=== PATIENT | male | born 1970 | race Caucasian/White ===

== ENCOUNTER 2018-05-27 10:36 | Emergency (ER) | payer OTHER, MEDICAID ==
[2018-05-27] MEDS ORDERED: Sulfamethoxazole/TMP 800/160mg Tab PO ONE (11:13)
--- NOTE | 2018-05-27 11:20 | ED Physician Chart ---
ED Chief Complaint/HPI - Patient Information Date Seen:: 05/27/18 Time Seen:: 11:00 Chief Complaint:: ulcer left lower leg History of Present Illness:: Patient struck his distal left mejia on a ladder 3 weeks ago and the abrasion is not healing. Patient's had chills and subjective fever. Several years ago patient had cellulitis of the same area of the left lower leg. Allergies:: Allergies Allergy/AdvReac Type Severity Reaction Status Date / Time No Known Allergies Allergy Verified 05/27/18 11:14 Historian:: Patient Review:: Nurse's Note Reviewed ED Review of Systems - Review of Systems General/Constitutional: Fever, Chills Skin: Skin lesions Head: No headache Eyes: No loss of vision ENT: No earache Neck: No neck pain Cardio Vascular: No chest pain, No palpitations Pulmonary: No SOB GI: No nausea, No vomiting, No diarrhea G/U: No dysuria, No frequency, No hematuria Musculoskeletal: No bone or joint pain Endocrine: No polyuria Psychiatric: No prior psych history Hematopoietic: No bruising Allergic/Immuno: No urticaria Neurological: No syncope ED Past Medical History - Past Medical History Past Medical History: HTN, DM, Other (borderline diabetes) Family History: Other (patient is adopted) Social History: Smoker, Alcohol, Other (smokes 5 cigarettes a day and drinks 1 pint of vodka per day) Surgical History: other (rotator cuff surgery right shoulder; meniscus surgery left knee) Psychiatricy History: None Medication: Reviewed ED Physical Exam - Physical Examination General/Constitutional: Well-developed, well-nourished, Alert Head: Atraumatic Eyes: Lids, conjuctiva normal, PERRL Other Skin comments:: Distal anterior left lower le 1/2 half by 3-1/2 cm weepy superficial red ulcer with about 15 cm of surrounding pale erythema ENMT: External ears, nose nl, Nasal exam nl, Lips, teeth, gums nl Neck: No nuchal rigidity Respiratory: Nl effort/Exclusion, Clear to Auscultation Cardio Vascular: RRR, No murmur, gallop, rubs GI: No tenderness/rebounding/guarding, No organomegaly : No CVA tenderness Other Extremities comments:: Left foot warm; strong dorsalis pedis pulse left foot Neuro/Psych: No focal deficits ED Labs/Radiology/EKG Results - Lab Results Results: Laboratory Tests 05/27/18 11:06 POC Glucose 144 H ED Assessment - Assessment General Assessment: Patient is okay to discharge. Patient instructed to keep his left leg elevated as much as possible. ED Septic Shock - . Is Septic Shock (SBP<90, OR Lactate>4 mmol\L) present?: No ED Reassessment (Disposition) - Reassessment Reassessment Condition:: Unchanged - Diagnosis Diagnosis:: Abscesses cellulitis left lower leg - Aftercare/Follow up Instructions Aftercare/Follow-Up Instructions:: Refer to Discharge Instructions Medication Prescribed:: Keflex 500 mg 4 times a day for 10 days; Bactrim DS No. 20 one twice a day for 10 days; ibuprofen 400 mg #30 to take 1 3 times a day - Patient Disposition Discharge/Transfer:: Home Condition at Disposition:: Stable, Unchanged
[2018-05-27] MEDS ORDERED: Sulfamethoxazole/TMP 800/160mg Tab ONE (11:34)
== END 2018-05-27 12:11 | disposition home or self-care (01) ==
LOC: ER 10:36
DX: L02.416 Cutaneous abscess of left lower limb (principal); L03.116 Cellulitis of left lower limb; L97.929 Non-pressure chronic ulcer of unspecified part of left lower leg with unspecified severity; I10 Essential (primary) hypertension; E11.9 Type 2 diabetes mellitus without complications; F17.210 Nicotine dependence, cigarettes, uncomplicated; Z59.0 Homelessness
CPT/HCPCS: 82948-90; Z7502; Z7610

== ENCOUNTER 2018-12-27 19:21 | Emergency (ER) | payer BC, MEDICAID ==
--- NOTE | 2018-12-27 19:50 | ED Physician Chart ---
ED Chief Complaint/HPI - Patient Information Date Seen:: 12/27/18 Time Seen:: 19:30 Chief Complaint:: Left lower leg wound. History of Present Illness:: Pt walked in this ER because of left lower leg wound for about 6 weeks. No fever. No N/V/D. No known h/o injury. Pt states that he has had similar wound in the same location intermittently over past 3 to 4 years. Allergies:: Allergies Allergy/AdvReac Type Severity Reaction Status Date / Time No Known Allergies Allergy Verified 05/27/18 11:14 Vitals:: Vital Signs - 8 hr 12/27/18 19:29 Temp 97.6 F HR 112 RR 18 BP 156/90 O2 Sat % 97 Historian:: Patient Family MD/PCP:: Dr. Cat LMP:: N/A Review:: Nurse's Note Reviewed ED Review of Systems - Review of Systems General/Constitutional: No fever, No chills, No weight loss, No weakness, No loss of appetite Skin: Skin lesions ( see HPI.), No rash Head: No headache, No light-headedness Eyes: No loss of vision, No pain ENT: No earache, No nasal drainage, No sore throat Neck: No neck pain, No swelling, No stiffness Cardio Vascular: No chest pain Pulmonary: No SOB, No cough, No wheezing GI: No nausea, No vomiting, No pain G/U: No dysuria, No frequency, No hematuria Musculoskeletal: No bone or joint pain Endocrine: No polyuria, No polydipsia Psychiatric: Prior psych history, No depression, No suicidal ideation, No homicidal ideation, No auditory hallucination, No visual hallucination Hematopoietic: No bruising, No lymphadenopathy Allergic/Immuno: No urticaria, No angioedema Neurological: No syncope, No focal symptoms, No weakness, No paresthesia, No headache, No dizziness, No confusion ED Past Medical History - Past Medical History Past Medical History: HTN Family History: Other (pt is adopted.) Social History: Smoker (Pt has been informed about health risks associated with tobacco use and has been advised to stop. Pt has been encouraged to enroll in a smoking cessation program. Pt acknowledges understanding.), Alcohol (occasional use.), Illicit Drug Use (rare marijuana use.), , Lives Alone Surgical History: other (R shoulder surgery about 14 y/a. L knee surgery about 15 y/a.) Psychiatricy History: Bipolar Medication: None Family Medical History - Family Member Mother History Unknown: Yes ED Physical Exam - Physical Examination General/Constitutional: Awake, Well-developed, well-nourished (male), Alert, No distress, Non-toxic appearing, Ambulatory Other Gen/Cons comments:: Breathes comfortably, speaks clearly, and interacts appropriately. Head: Atraumatic Eyes: Lids, conjuctiva normal, PERRL, EOMI Skin: Well hydrated, No lymphadenopathy Other Skin comments:: L lower leg: There is an approx. 9 x 6 cm wound at mid distal anterior aspect of left lower leg with trace yellow exudate and peripheral erythema. No red streaking. ENMT: External ears, nose nl, Nasal exam nl, Oropharynx nl Neck: Nontender, Full ROM w/o pain, No nuchal rigidity, No mass Respiratory: Nl effort/Exclusion, Clear to Auscultation, No Wheeze/Rhonchi/Rales Cardio Vascular: RRR, No murmur, gallop, rubs GI: No tenderness/rebounding/guarding, No organomegaly, Normal BS's, Nondistended Neuro/Psych: Alert/oriented (oriented x 3), Mood normal, Normal gait, No focal deficits ED Labs/Radiology/EKG Results - Lab Results Results: Laboratory Results - last 24 hr 12/27/18 12/27/18 20:10 20:10 WBC 7.5 RBC 4.27 L Hgb 13.5 Hct 39.3 L MCV 92.0 MCH 31.6 H MCHC Differential 34.4 RDW 12.8 Plt Count 240 MPV 7.3 Neutrophils % 73.9 Lymphocytes % 14.2 L Monocytes % 8.2 Eosinophils % 3.7 Basophils % 0.0 PT 9.7 INR 0.93 Laboratory Last Values WBC 7.5 Th/cmm (4.8-10.8) 12/27/18 20:10 RBC 4.27 Mil/cmm (4.30-5.70) L 12/27/18 20:10 Hgb 13.5 gm/dL (12-16) 12/27/18 20:10 Hct 39.3 % (41.0-60) L 12/27/18 20:10 MCV 92.0 fl (80-99) 12/27/18 20:10 MCH 31.6 pg (26.0-30.0) H 12/27/18 20:10 MCHC Differential 34.4 pg (28.0-36.0) 12/27/18 20:10 RDW 12.8 % (11.5-20.0) 12/27/18 20:10 Plt Count 240 Th/cmm (150-400) 12/27/18 20:10 MPV 7.3 fl 12/27/18 20:10 Neutrophils % 73.9 % (40.0-80.0) 12/27/18 20:10 Lymphocytes % 14.2 % (20.0-50.0) L 12/27/18 20:10 Monocytes % 8.2 % (2.0-10.0) 12/27/18 20:10 Eosinophils % 3.7 % (0.0-5.0) 12/27/18 20:10 Basophils % 0.0 % (0.0-2.0) 12/27/18 20:10 PT 9.7 SECONDS (9.5-11.5) 12/27/18 20:10 INR 0.93 (0.5-1.4) 12/27/18 20:10 PTT (Actin FS) 22.3 SECONDS (26.0-38.0) L 12/27/18 20:10 Sodium 136 mEq/L (136-145) 12/27/18 20:10 Potassium 3.7 mEq/L (3.5-5.1) 12/27/18 20:10 Chloride 103 mEq/L (98-107) 12/27/18 20:10 Carbon Dioxide 24.9 mEq/L (21.0-31.0) 12/27/18 20:10 Anion Gap 11.8 (7.0-16.0) 12/27/18 20:10 BUN 12 mg/dL (7-25) 12/27/18 20:10 Creatinine 0.9 mg/dL (0.7-1.3) 12/27/18 20:10 Est GFR ( Amer) > 60.0 ml/min (>90) 12/27/18 20:10 Est GFR (Non-Af Amer) > 60.0 ml/min 12/27/18 20:10 BUN/Creatinine Ratio 13.3 12/27/18 20:10 Glucose 139 mg/dL (70-105) H 12/27/18 20:10 Calcium 9.1 mg/dL (8.6-10.3) 12/27/18 20:10 Total Bilirubin 0.5 mg/dL (0.3-1.0) 12/27/18 20:10 AST 66 U/L (13-39) H 12/27/18 20:10 ALT 87 U/L (7-52) H 12/27/18 20:10 Alkaline Phosphatase 70 U/L (34-104) 12/27/18 20:10 Total Protein 6.7 gm/dL (6.0-8.3) 12/27/18 20:10 Albumin 3.9 gm/dL (4.2-5.5) L 12/27/18 20:10 Globulin 2.8 gm/dL 12/27/18 20:10 Albumin/Globulin Ratio 1.4 (1.0-1.8) 12/27/18 20:10 ED Septic Shock - . Is Septic Shock (SBP<90, OR Lactate>4 mmol\L) present?: No - <6hrs of presentation: Vital Signs: Vital Signs - 8 hr 12/27/18 19:29 Temp 97.6 F HR 112 RR 18 BP 156/90 O2 Sat % 97 ED Reassessment (Disposition) - Reassessment Reassessment:: 2054 Pt has been repeatedly evaluated. Pt remains stable. Available lab findings have been reviewed with pt. Management plan has been discussed. 2129 Case was discussed with Dr. Watts with pertinent info reviewed. He accepted pt to be transferred to [facility] for further inpatient care. 2154 Pt is alert and oriented x 3. Pt decides to leave AMA. Indications for further inpatient care, related benefits and risks, including risks for leaving AMA, have been well explained. Pt still chooses to leave AMA and has signed AMA form. The above discussion and signing of AMA form have been witnessed by my nurse Be. Pt has been informed that if he changes his mind, he is welcome to return anytime. Pt again acknowledges understanding and appreciate our effort in caring for him. Reassessment Condition:: Improved - Diagnosis Diagnosis:: Infected wound in left lower leg. H/O HTN. - Patient Disposition Discharge/Transfer:: Against Medical Advice Time:: 21:55 Condition at Disposition:: Stable
[2018-12-27 20:17] LABS: % EOSINOPHILS 3.7 % (0.0-5.0); % LYMPHOCYTES 14.2 % (20.0-50.0); % MONOCYTES 8.2 % (2.0-10.0); % NEUTROPHILS 73.9 % (40.0-80.0); EOSINOPHILE ABSOLUTE 0.3 Th/cmm (0.1-0.4); HEMATOCRIT 39.3 % (41.0-60); HEMOGLOBIN 13.5 gm/dL (12-16); LYMPHOCYTE ABSOLUTE 1.1 Th/cmm (1.5-3.0); MEAN CORPUSCULAR HEMOGLOBIN 31.6 pg (26.0-30.0); MEAN CORPUSCULAR HGB CONC 34.4 pg (28.0-36.0); MEAN PLATELET VOLUME 7.3 fl; MONOCYTE ABSOLUTE 0.6 Th/cmm (0.3-1.0); NEUTROPHILE ABSOLUTE 5.5 Th/cmm (1.8-8.0); PLATELET COUNT 240 Th/cmm (150-400); RED BLOOD COUNT 4.27 Mil/cmm (4.30-5.70); RED CELL DISTRIBUTION WIDTH 12.8 % (11.5-20.0); WHITE BLOOD COUNT 7.5 Th/cmm (4.8-10.8)
[2018-12-27 20:27] LABS: INR 0.93 (0.5-1.4); PROTHROMBIN TIME (TEST) 9.7 SECONDS (9.5-11.5)
[2018-12-27 20:33] LABS: ALB/GLOB RATIO 1.4 (1.0-1.8); ALBUMIN 3.9 gm/dL (4.2-5.5); ALKALINE PHOSPHATASE 70 U/L (34-104); ANION GAP 11.8 (7.0-16.0); BILIRUBIN,TOTAL 0.5 mg/dL (0.3-1.0); BUN - UREA NITROGEN 12 mg/dL (7-25); CALCIUM SERUM 9.1 mg/dL (8.6-10.3); CARBON DIOXIDE 24.9 mEq/L (21.0-31.0); CHLORIDE 103 mEq/L (98-107); CREATININE - SERUM 0.9 mg/dL (0.7-1.3); GFR AFRICAN-AMERICAN > 60.0 ml/min (>90); GFR NON AFRICAN-AMERICAN > 60.0 ml/min; GLUCOSE 139 mg/dL (70-105); POTASSIUM SERUM 3.7 mEq/L (3.5-5.1); SGOT 66 U/L (13-39); SGPT/ALT 87 U/L (7-52); SODIUM SERUM 136 mEq/L (136-145); TOTAL PROTEIN,SERUM 6.7 gm/dL (6.0-8.3)
== END 2018-12-27 22:00 | disposition left against medical advice (07) ==
LOC: ER 19:21
DX: S81.802A Unspecified open wound, left lower leg, initial encounter (principal); L08.9 Local infection of the skin and subcutaneous tissue, unspecified; I10 Essential (primary) hypertension; F31.9 Bipolar disorder, unspecified; F17.200 Nicotine dependence, unspecified, uncomplicated; X58.XXXA Exposure to other specified factors, initial encounter; Y93.89 Activity, other specified; Y92.89 Other specified places as the place of occurrence of the external cause; Y99.8 Other external cause status
CPT/HCPCS: 99283; 96365; 36415; 85025; 85610; 80053; J3370; 87070-90; Z7502; Z7610

== ENCOUNTER 2019-02-13 11:51 | Emergency (ER) | payer BC ==
[2019-02-13] MEDS ORDERED: Piperacillin Sodium/Tazobact 3.375 gm Vial IV ONE (12:18)
--- NOTE | 2019-02-13 12:21 | ED Physician Chart ---
ED Chief Complaint/HPI - Patient Information Date Seen:: 02/13/19 Time Seen:: 12:15 Chief Complaint:: swelling reddness lt leg History of Present Illness:: 48 yr old male with hx of cellulitis lt leg recentlyfinished inpatient tx and iv then po antiobiotics still with reddness swelling also lt arm swelling and liver pain swelling Allergies:: Allergies Allergy/AdvReac Type Severity Reaction Status Date / Time No Known Allergies Allergy Verified 05/27/18 11:14 ED Review of Systems - Review of Systems General/Constitutional: No fever Skin: Skin lesions (reddness and lt lower leg open wound) Head: No headache Eyes: No loss of vision ENT: No earache Cardio Vascular: No chest pain Pulmonary: No SOB GI: No nausea, No vomiting, No diarrhea, Pain (ruq pain) Endocrine: No polyuria Psychiatric: No depression Hematopoietic: No bruising Allergic/Immuno: No urticaria Neurological: No syncope ED Past Medical History - Past Medical History Past Medical History: HTN, Other (psych disorder etoh abuse) Family Medical History - Family Member Mother History Unknown: Yes ED Physical Exam - Physical Examination General/Constitutional: Awake Head: Atraumatic Eyes: Lids, conjuctiva normal Other Skin comments:: fiery red LLE leg with large open wound mild edema bilaterally and lue edema ENMT: External ears, nose nl Neck: Nontender Respiratory: Nl effort/Exclusion Cardio Vascular: RRR : No CVA tenderness (edema) Neuro/Psych: Alert/oriented ED Septic Shock - . Is Septic Shock (SBP<90, OR Lactate>4 mmol\L) present?: No ED Reassessment (Disposition) - Reassessment Reassessment:: cellulitis lt leg - Diagnosis Diagnosis:: cellulitis lt leg - Aftercare/Follow up Instructions Aftercare/Follow-Up Instructions:: Counseled pt regarding lab results/diagnosis & need follow up - Patient Disposition Discharge/Transfer:: Home Condition at Disposition:: Stable
[2019-02-13] MEDS ORDERED: Morphine Sulfate 4 mg/mL 1mL Syr IM STA (12:27)
[2019-02-13 12:29] LABS: EOSINOPHILE ABSOLUTE 0.3 Th/cmm (0.1-0.4); MONOCYTE ABSOLUTE 0.6 Th/cmm (0.3-1.0)
[2019-02-13 12:32] LABS: % EOSINOPHILS 3.6 % (0.0-5.0); % LYMPHOCYTES 15.2 % (20.0-50.0); % MONOCYTES 8.1 % (2.0-10.0); % NEUTROPHILS 73.1 % (40.0-80.0); HEMATOCRIT 33.5 % (41.0-60); LYMPHOCYTE ABSOLUTE 1.1 Th/cmm (1.5-3.0); MEAN CELL VOLUME 91.1 fl (80-99); MEAN CORPUSCULAR HEMOGLOBIN 32.7 pg (26.0-30.0); MEAN CORPUSCULAR HGB CONC 35.9 pg (28.0-36.0); NEUTROPHILE ABSOLUTE 5.1 Th/cmm (1.8-8.0); PLATELET COUNT 192 Th/cmm (150-400); RED BLOOD COUNT 3.68 Mil/cmm (4.30-5.70); RED CELL DISTRIBUTION WIDTH 14.5 % (11.5-20.0); WHITE BLOOD COUNT 7.1 Th/cmm (4.8-10.8)
[2019-02-13] MEDS ORDERED: Morphine Sulfate 2 mg/mL 1mL Syr IVP STA (12:42)
[2019-02-13] MEDS ORDERED: Morphine Sulfate 2 mg/mL 1mL Syr ONE (12:45)
[2019-02-13 12:47] LABS: ALB/GLOB RATIO 1.4 (1.0-1.8); ALKALINE PHOSPHATASE 66 U/L (34-104); ANION GAP 12.1 (7.0-16.0); BILIRUBIN,TOTAL 0.7 mg/dL (0.3-1.0); BUN - UREA NITROGEN 8 mg/dL (7-25); CALCIUM SERUM 9.3 mg/dL (8.6-10.3); CARBON DIOXIDE 21.8 mEq/L (21.0-31.0); CHLORIDE 105 mEq/L (98-107); CREATININE - SERUM 0.8 mg/dL (0.7-1.3); GFR AFRICAN-AMERICAN > 60.0 ml/min (>90); GFR NON AFRICAN-AMERICAN > 60.0 ml/min; GLUCOSE 92 mg/dL (70-105); POTASSIUM SERUM 3.9 mEq/L (3.5-5.1); SGOT 30 U/L (13-39); SGPT/ALT 30 U/L (7-52); SODIUM SERUM 135 mEq/L (136-145); TOTAL PROTEIN,SERUM 6.8 gm/dL (6.0-8.3)
--- NOTE | 2019-02-14 08:57 | Diagnostic Imaging Report ---
Bilateral lower extremity Doppler venous ultrasound exam HISTORY: Pain/swelling Sonographic sector images were obtained through the deep venous systems of both legs. Associated Doppler data was obtained. The exam demonstrates patency of the common femoral, superficial femoral, popliteal, and posterior tibial veins bilaterally. Specifically, no thrombus is seen. There are normal compressibility and augmentation responses. IMPRESSION: Negative exam for deep vein thrombophlebitis.
--- NOTE | 2019-02-14 08:58 | Diagnostic Imaging Report ---
Bilateral upper extremity Doppler venous ultrasound exam HISTORY: Swelling Sonographic sector images were obtained through the venous systems of both arms. Associated Doppler data was obtained. The exam demonstrates patency of the right and left internal jugular, subclavian, axillary, brachial, basilic, cephalic veins. No thrombus. Compressibility and augmentation responses. IMPRESSION: Negative exam for thrombophlebitis
== END 2019-02-13 14:34 | disposition home or self-care (01) ==
LOC: ER 11:51
DX: L03.116 Cellulitis of left lower limb (principal); I10 Essential (primary) hypertension
CPT/HCPCS: 99284; 96365; 96375; 93970 ×2; 36415; 85025; 80053; 87040 ×2; J2270; J2543